=== PATIENT | male | born 1955 | race Caucasian/White ===

== ENCOUNTER 2016-08-01 09:40 | Day surgery (SDC) ==
[2016-08-01] MEDS ORDERED: NS 1,000 ML ONE (10:03)
[2016-08-01] MEDS ORDERED: XYLOCAINE 2% VISCOUS ONE (10:23)
[2016-08-01] MEDS ORDERED: XYLOCAINE 2% ONE (10:23)
[2016-08-01] MEDS ORDERED: XYLOCAINE 1% ONE (10:23)
[2016-08-01] MEDS ORDERED: SODIUM CHLORIDE 0.9% 20 ML ONE (10:24)
[2016-08-01] MEDS ORDERED: EPINEPHRINE ONE (10:24)
[2016-08-01] MEDS ORDERED: XYLOCAINE 2% MISC ONE ×2 (11:21→14:56)
[2016-08-01] MEDS ORDERED: FENTANYL ONE (13:25)
[2016-08-01] MEDS ORDERED: VERSED ONE (13:26)
[2016-08-01] MEDS ORDERED: DIPRIVAN 1% 50 ML ONE (13:27)
[2016-08-01] MEDS ORDERED: ZOFRAN ONE (13:40)
[2016-08-01] MEDS ORDERED: ROBINUL ONE (13:40)
[2016-08-01] MEDS ORDERED: XYLOCAINE-MPF 2% ONE (13:41)
[2016-08-01 14:15] VITALS: BP 139/75
[2016-08-01] MEDS ORDERED: MYLICON DROPS (DOSE) MISC ONE (14:56)
--- NOTE | 2016-08-01 15:39 | OPERATIVE NOTE ---
PROCEDURE DATE: 08/01/2016 REFERRING PHYSICIAN: Dr. Pryor. PROCEDURE: Bronchoscopy. INDICATION: Left central lung masses and mediastinal lymphadenopathy. DESCRIPTION OF PROCEDURE: Consent obtained. Conscious sedation through anesthesia department. Fluoroscopy scanning used for sampling and biopsy guidance. Right nostril approach with local anesthesia. Normal vocal cord movements. All major segments visualized. Left upper lobe segment is visualized more subtly. In the left upper lobe anterior segment there is about 10% blockage with mucous membrane thickening. We have taken brushings and washings from all major segments and then we did a Lewis needle biopsy for left upper lobe anterior segment and posterior segment. Then we proceeded with transbronchial biopsies from the anterior segment and posterior segment and then we did endobronchial biopsy from the anterior segment of left upper lobe. Fluoroscopy scanning used all through. Blood loss all together less than 5 mL. There was no bleeding by the time we pulled the scope. At times we sprayed diluted epinephrine preemptively to prevent and minimize bleeding. Fluoroscopy postprocedure showed no pneumothorax. IMPRESSIONS: 1. Left central lung masses and mediastinal lymphadenopathy. 2. A 10% blockage of left upper lobe anterior segment. 3. Lewis needle aspiration biopsy, transbronchial and endobronchial biopsies, brushing and washings for cytology all were performed. PLAN: We are awaiting cytology, microbiology, and pathology results. The patient tolerated the procedure well.
--- NOTE | 2016-08-01 17:40 | Diag Imaging Result Document ---
PROCEDURE NAME: CHEST-PORTABLE - 08/01/2016 SINGLE FRONTAL RADIOGRAPH OF THE CHEST: COMPARISON: None available. FINDINGS: The lungs are grossly clear. There is no definite pleural fluid collection. There is no evidence of pneumothorax status post bronchoscopy. There is left hilar prominence corresponding to a known hilar mass. Cardiac silhouette is unremarkable. IMPRESSION: 1. No evidence of pneumothorax post bronchoscopy. 2. Left hilar prominence consistent with known mass seen on previous CT.
== END 2016-08-01 14:29 | disposition home or self-care (01) ==
LOC: ENDO 09:40
PROVIDERS: ATTEND Internal Medicine Pulmonary Disease
DX: R59.0 Localized enlarged lymph nodes (principal); J84.10 Pulmonary fibrosis, unspecified; J44.9 Chronic obstructive pulmonary disease, unspecified; F17.210 Nicotine dependence, cigarettes, uncomplicated
CPT/HCPCS: 71010; 76000; 82948; 87015; 87070; 87077; 87102; 87116; 87147; 87186; 87205; 87206; 88305; 88312; 88313; J0171; J2250; J2405; J3010; J7030